=== PATIENT | female | born 1970 | race Caucasian/White ===

== ENCOUNTER 2018-07-29 06:21 | Day surgery (SDC) | payer OTHER ==
[2018-07-29] MEDS ORDERED: SUCCINYLCHOLINE CHLORIDE 100 MG/5 ML SYG IV (07:00)
[2018-07-29] MEDS ORDERED: LIDOCAINE 2% (SDV) 5 ML INJ (07:00)
[2018-07-29] MEDS ORDERED: DESFLURANE 15 MIN (07:00)
[2018-07-29] MEDS ORDERED: GLYCOPYRROLATE 0.4 MG INJ (07:51)
[2018-07-29] MEDS ORDERED: PROPOFOL 20 ML (07:51)
[2018-07-29] MEDS ORDERED: CEFAZOLIN 1 GM INJ (07:51)
[2018-07-29] MEDS ORDERED: ROCURONIUM 50 MG INJ (07:51)
[2018-07-29] MEDS ORDERED: NEOSTIGMINE 3 MG/3 ML SYRINGE (07:51)
[2018-07-29] MEDS ORDERED: MIDAZOLAM 1 MG/ML 2 ML INJ (07:52)
[2018-07-29] MEDS ORDERED: ONDANSETRON 4 MG INJ (07:52)
[2018-07-29] MEDS ORDERED: FENTAnyl 50 MCG/ML VIAL (07:52)
[2018-07-29] MEDS ORDERED: DEXAMETHASONE 4 MG/ML 1 ML INJ (07:52)
[2018-07-29] MEDS ORDERED: EPHEDrine SULFATE 50 MG/5 ML SYG IV (08:30)
[2018-07-29] MEDS ORDERED: TRIMETHOBENZAMIDE 100 MG/ML VIAL IM (08:30)
[2018-07-29] MEDS ORDERED: ALBUTEROL 0.083% (NEB) 2.5 MG/3 ML AMP HHN (08:30)
[2018-07-29] MEDS ORDERED: IPRATROPIUM (NEB) 0.5 MG/2.5 ML AMP HHN (08:30)
[2018-07-29] MEDS ORDERED: ONDANSETRON 4 MG INJ IV (08:30)
[2018-07-29] MEDS ORDERED: LABETALOL HCL 20MG INJ IV (08:30)
[2018-07-29] MEDS ORDERED: MIDAZOLAM 1 MG/ML 2 ML INJ IV (08:30)
[2018-07-29] MEDS ORDERED: MEPERIDINE 25 MG INJ IV (08:30)
[2018-07-29] MEDS ORDERED: HYDROmorphONE 1 MG/5 ML IV SYRINGE IV ×3 (08:30)
[2018-07-29] MEDS ORDERED: FENTAnyl 50 MCG/ML VIAL IV ×3 (08:30)
[2018-07-29] MEDS ORDERED: OXYCODONE/ACETAMINOPHEN (5/325) TAB PO ×2 (08:30)
[2018-07-29] MEDS ORDERED: hydrALAzine 20 MG INJ IV (08:30)
[2018-07-29] MEDS ORDERED: DIPHENHYDRAMINE 50 MG INJ IV (08:30)
[2018-07-29] MEDS ORDERED: ACETAMINOPHEN 325 MG TAB PO (09:30)
== END 2018-07-29 10:45 | disposition home or self-care (01) ==
LOC: SDS 06:21
DX: N92.1 Excessive and frequent menstruation with irregular cycle (principal); D25.9 Leiomyoma of uterus, unspecified; D64.9 Anemia, unspecified
CPT/HCPCS: 58120; 84702; 86850; 86900; 86901; 88305